=== PATIENT | female | born 1990 | race Caucasian/White ===

== ENCOUNTER 2017-02-14 09:40 | Emergency (ER) | payer OTHER ==
[2017-02-14 10:24] VITALS: BP 108/65
--- NOTE | 2017-02-14 11:06 | UC ---
Complaint Female HPI - HPI Summary HPI Summary: Pt presents with urinary symptoms of frequency, urgency and dysuria. Pt has concern for STD's and is requesting testing. Has c/o vaginal discomfort, odiferous, thick vaginal discharge. Pt recently had unprotected sex with partner. - History Of Current Complaint Chief Complaint: UCGU Stated Complaint: URINARY Time Seen by Provider: 02/14/17 10:25 Hx Obtained From: Patient Hx Last Menstrual Period: 01/20/17 ?: No Onset/Duration: Gradual Onset, Lasting Days Timing: Constant Severity Initially: Mild Severity Currently: Mild Character: Burning Aggravating Factor(s): Urination Associated Signs And Symptoms: Positive: Vaginal Discharge - yellow, odiferous - Risk Factors Ectopic Risk Factor: IUD Use Ovarian Torsion Risk Factor: Reproductive Age - Allergies/Home Medications Allergies/Adverse Reactions: Allergies Allergy/AdvReac Type Severity Reaction Status Date / Time Latex Allergy Hives Verified 02/14/17 10:19 Home Medications: Home Medications NK [No Home Medications Reported] 02/14/17 [History Confirmed 02/14/17] PMH/Surg Hx/FS Hx/Imm Hx Previously Healthy: Yes - Surgical History Surgical History: Yes Surgery Procedure, Year, and Place: tonsilletomy age 2 - Family History Known Family History: Positive: Other - positive [facility] for - Social History Alcohol Use: Occasionally Substance Use Type: None Smoking Status (MU): Light Every Day Tobacco Smoker Type: Cigarettes Amount Used/How Often: 2-3 cigarettes daily Household Exposure Type: Cigarettes - Immunization History Most Recent Influenza Vaccination: no Review of Systems Constitutional: Negative Skin: Negative Eyes: Negative ENT: Negative Respiratory: Negative Cardiovascular: Negative Gastrointestinal: Abdominal Pain - pelvic cramping Genitourinary: Dysuria, Frequency, Urgency Motor: Negative Neurovascular: Negative Musculoskeletal: Negative Neurological: Negative Psychological: Negative All Other Systems Reviewed And Are Negative: Yes Physical Exam Triage Information Reviewed: Yes Appearance: Well-Appearing Vital Signs: Initial Vital Signs Temp 98.4 F 02/14/17 10:19 Pulse 64 02/14/17 10:19 Resp 16 02/14/17 10:19 BP 108/65 02/14/17 10:19 Pulse Ox 100 02/14/17 10:19 Vital Signs Reviewed: Yes Eye Exam: Normal ENT Exam: Normal Neck exam: Normal Respiratory Exam: Normal Cardiovascular Exam: Normal Abdominal Exam: Other - thick yellow discharge in vaginal vault, cervix, pink, nonfirable, cervix visualized, did not visualize IUD strings. Abdomen Description: Positive: Other: - negative chandeliers test Musculoskeletal Exam: Normal Neurological Exam: Normal Psychological Exam: Normal Skin Exam: Normal Complaint Female Dx - Differential Dx/Diagnosis Differential Diagnosis/HQI/PQRI: Pelvic Inflammatory Disease, Sexually Transmitted Disease, Urinary Tract Infection Provider Diagnoses: Possible STD exposure. Bacterial Vaginosis Discharge - Discharge Plan Condition: Stable Disposition: HOME Patient Education Materials: Vaginitis (ED), Sexually Transmitted Diseases (ED) Referrals: [facility] [place] [facility] [Outside] Additional Instructions: Please follow up with your PCP or return to clinic as needed.
[2017-02-14] MEDS ORDERED: Azithromycin TAB* 250 MG PO ONE (11:19)
[2017-02-14] MEDS ORDERED: cefTRIAXone VIAL(*) 1,000 MG VIAL IM ONE (11:20)
[2017-02-14] MEDS ORDERED: cefTRIAXone VIAL(*) 250 MG VIAL IM ONE (11:26)
[2017-02-14] MEDS ORDERED: Lidocaine 1% MPF* 2 ML VIAL ONE (11:31)
== END 2017-02-14 12:00 | disposition home or self-care (01) ==
LOC: UCCORT 09:40
DX: N76.0 Acute vaginitis (principal); Z11.3 Encounter for screening for infections with a predominantly sexual mode of transmission; Z32.02 Encounter for pregnancy test, result negative; F17.210 Nicotine dependence, cigarettes, uncomplicated
CPT/HCPCS: 81003; 84702; 87070; 87480; 87491; 87510; 87591; 87661; 96372; 99213; A9270-GY; G0463; J0696

== ENCOUNTER 2017-10-24 14:13 | Emergency (ER) | payer OTHER ==
[2017-10-24 15:03] VITALS: BP 118/69
--- NOTE | 2017-10-24 15:25 | UC ---
Eye Complaint HPI - HPI Summary HPI Summary: bilateral eye redness and itching some purulent drainage has been worsening over the past 5 days---now also has sinus and nasal congestion - History of Current Complaint Chief Complaint: UCEye Stated Complaint: BILATERAL EYE Time Seen by Provider: 10/24/17 15:13 Hx Obtained From: Patient Hx Last Menstrual Period: 10/08/17 ?: No Onset/Duration: Gradual Onset, Lasting Days - 5, Still Present, Worse Since - today Timing: Constant Severity Initially: Mild Severity Currently: Moderate Location of Injury: Conjunctiva Aggravating Factor(s): Nothing Alleviating Factor(s): Nothing Associated Signs And Symptoms: Positive: Drainage (Purulent) - Allergies/Home Medications Allergies/Adverse Reactions: Allergies Allergy/AdvReac Type Severity Reaction Status Date / Time Latex Allergy Hives Verified 10/24/17 15:03 Home Medications: Home Medications Phendimetrazine Tartrate 105 mg PO BID 10/24/17 [History Confirmed 10/24/17] PMH/Surg Hx/FS Hx/Imm Hx Previously Healthy: Yes - Surgical History Surgical History: Yes Surgery Procedure, Year, and Place: tonsilletomy age 2 - Family History Known Family History: Positive: None, Other - positive [facility] for - Social History Occupation: Employed Full-time Lives: With Family Alcohol Use: Occasionally Substance Use Type: None Smoking Status (MU): Light Every Day Tobacco Smoker Type: Cigarettes Amount Used/How Often: 1/2 PPD daily Length of Time of Smoking/Using Tobacco: 10 YRS Have You Smoked in the Last Year: Yes Household Exposure Type: Cigarettes - Immunization History Most Recent Influenza Vaccination: no Review of Systems Constitutional: Negative Skin: Negative Eyes: Drainage, Eye Redness ENT: Negative, Nasal Discharge, Sinus Congestion Respiratory: Negative Cardiovascular: Negative Gastrointestinal: Negative Genitourinary: Negative Motor: Negative Neurovascular: Negative Musculoskeletal: Negative Neurological: Negative Psychological: Negative Is Patient Immunocompromised?: No All Other Systems Reviewed And Are Negative: Yes Physical Exam Triage Information Reviewed: Yes Appearance: Well-Appearing, No Pain Distress, Well-Nourished Vital Signs: Initial Vital Signs Temp 97.5 F 10/24/17 14:55 Pulse 82 10/24/17 14:55 Resp 18 10/24/17 14:55 BP 118/69 10/24/17 14:55 Pulse Ox 100 10/24/17 14:55 Vital Signs Reviewed: Yes Eye Exam: Other Eyes: Positive: Conjunctiva Inflamed, Discharge ENT Exam: Normal ENT: Positive: Normal ENT inspection, Hearing grossly normal, Pharynx normal, Nasal congestion, TMs normal, Uvula midline. Negative: Tonsillar swelling, Tonsillar exudate, Trismus, Muffled voice, Hoarse voice, Sinus tenderness Dental Exam: Normal Neck exam: Normal Neck: Positive: Supple, Nontender, No Lymphadenopathy Respiratory Exam: Normal Respiratory: Positive: Chest non-tender, Lungs clear, Normal breath sounds, No respiratory distress, No accessory muscle use Cardiovascular Exam: Normal Cardiovascular: Positive: RRR, No Murmur, Pulses Normal, Brisk Capillary Refill Musculoskeletal Exam: Normal Musculoskeletal: Positive: Strength Intact, ROM Intact, No Edema Neurological Exam: Normal Neurological: Positive: Alert, Muscle Tone Normal Psychological Exam: Normal Skin Exam: Normal Eye Complaint Course/Dx - Course Course Of Treatment: polytrim drops ou, sudafed, follow with optho if worsens or fails to improve, - Differential Dx/Diagnosis Provider Diagnoses: Rhinosinusitis, Conjuctivitis ou Discharge - Discharge Plan Condition: Stable Disposition: HOME Prescriptions: Polymyx/Trimethoprim OPTH* [Polytrim OPHTH*] 1 drop BOTH EYES Q4H #1 btl Patient Education Materials: Pseudoephedrine (By mouth), Rhinosinusitis (ED), Conjunctivitis (ED) Forms: *Work Release Referrals: [facility] [place] [facility] [[place]] - If Needed Ranjit Sharma MD [Medical Doctor] - 5 Days
== END 2017-10-24 15:38 | disposition home or self-care (01) ==
LOC: UCCORT 14:13
DX: H10.33 Unspecified acute conjunctivitis, bilateral (principal); R05 Cough; R09.81 Nasal congestion
CPT/HCPCS: 99212; G0463

== ENCOUNTER 2017-11-18 11:32 | Emergency (ER) | payer OTHER ==
[2017-11-18 11:52] VITALS: BP 125/70
--- NOTE | 2017-11-18 12:03 | UC ---
Eye Complaint HPI - HPI Summary HPI Summary: 27 year with eye complaint. Here 10/2017 and given antibiotic drops. Had viral illness prior to that. Went to [facility] and given additional drops and still not improved. c/o bi-lateral eye swelling, pain, redness to the conjunctiva and scelera for the past month. She has tried eye drops from our clinic, eye ointment from [facility] ED and still the eyes are not improving. She states having clear drainage from both eyes all day and "crusted over" every morning. [ End ] - History of Current Complaint Chief Complaint: UCEye Stated Complaint: BILAT EYE ISSUE Time Seen by Provider: 11/18/17 11:43 Hx Obtained From: Patient Hx Last Menstrual Period: 11/12/17 Onset/Duration: Gradual Onset Timing: Constant Severity Initially: Moderate Severity Currently: Moderate Associated Signs And Symptoms: Positive: Drainage (Clear). Negative: Photophobia, Drainage (Purulent), Vision Impairment Bilateral - Allergies/Home Medications Allergies/Adverse Reactions: Allergies Allergy/AdvReac Type Severity Reaction Status Date / Time Latex Allergy Hives Verified 11/18/17 11:52 PMH/Surg Hx/FS Hx/Imm Hx Previously Healthy: Yes - Surgical History Surgical History: Yes Surgery Procedure, Year, and Place: tonsilletomy age 2 - Family History Known Family History: Positive: None, Other - positive [facility] for - Social History Occupation: Employed Full-time Alcohol Use: Occasionally Substance Use Type: None Smoking Status (MU): Heavy Every Day Tobacco Smoker Type: Cigarettes Amount Used/How Often: 1/2 PPD daily Length of Time of Smoking/Using Tobacco: 10 YRS Have You Smoked in the Last Year: Yes Household Exposure Type: Cigarettes - Immunization History Most Recent Influenza Vaccination: no Review of Systems Eyes: Drainage, Eye Redness Is Patient Immunocompromised?: No All Other Systems Reviewed And Are Negative: Yes Physical Exam Triage Information Reviewed: Yes Appearance: Well-Appearing, No Pain Distress, Well-Nourished Vital Signs: Initial Vital Signs Temp 99.6 F 11/18/17 11:43 Pulse 77 11/18/17 11:43 Resp 14 11/18/17 11:43 BP 125/70 11/18/17 11:43 Pulse Ox 100 11/18/17 11:43 Vital Signs Reviewed: Yes Eye Exam: Normal Eyes: Positive: Conjunctiva Inflamed, Discharge - clear b/l ENT Exam: Normal Dental Exam: Normal Neck exam: Normal Neck: Positive: 1 Respiratory Exam: Normal Cardiovascular Exam: Normal Musculoskeletal Exam: Normal Neurological Exam: Normal Psychological Exam: Normal Skin Exam: Normal Eye Complaint Course/Dx - Course Course Of Treatment: no contacts used. start drops. given info and referral to optho to call and set up appt if sx not resolved. - Differential Dx/Diagnosis Differential Diagnosis/HQI/PQRI: Conjunctivitis, Uveitis Provider Diagnoses: Allergic conjunctivitis b/l Discharge - Discharge Plan Condition: Good Disposition: HOME Prescriptions: Olopatadine 0.1% OPHTH (NF) [Patanol 0.1% OPHTH (NF)] 1 drop BOTH EYES DAILY #1 btl Patient Education Materials: Conjunctivitis (ED) Referrals: Ranjit Sharma MD [Medical Doctor] - 4 Days (If needed Optho referral ) Additional Instructions: You are being diagnosed with allergic conjunctivitis and if your symptoms are not resolving in the next 2-3 days then call for optho follow up
== END 2017-11-18 12:19 | disposition home or self-care (01) ==
LOC: UCCORT 11:32
DX: H10.13 Acute atopic conjunctivitis, bilateral (principal); Z90.89 Acquired absence of other organs; Z91.040 Latex allergy status; F17.210 Nicotine dependence, cigarettes, uncomplicated
CPT/HCPCS: 99212; G0463

== ENCOUNTER 2018-02-02 14:59 | Emergency (ER) | payer OTHER ==
[2018-02-02 15:33] VITALS: BP 134/72
[2018-02-02] MEDS ORDERED: Acetaminophen TAB* 325 MG PO ONE (15:47)
--- NOTE | 2018-02-02 15:47 | UC ---
Complaint Female HPI - HPI Summary HPI Summary: Pt presents reporting 3 hours of pinching pain in left lower abdomen. Pt states has intermittently had pinching sensation and her rapid outsole stitcher thinks related to her IUD. Pt states today had severe pinching pain which is different than previous, but in same location. no vaginal bleeding, itching, or odor. No discomfort with intercourse. No nausea, vomiting. Pt has appt with rapid outsole stitcher for next Wednesday to have IUD evaluated - called today and could not be seen sooner. Pt directed to UC. No analgesia taken. No other complaints. No diarrhea. + po. No h/o ovarian cysts. Pt states took a test [employer] which was negative Pt's medications reviewed this visit - History Of Current Complaint Chief Complaint: UCAbdominalPain Stated Complaint: LFT SIDE PAIN (CERVICAL) Time Seen by Provider: 02/02/18 15:28 Hx Last Menstrual Period: 12/15/17 - has IUD Pain Intensity: 7 - Allergies/Home Medications Allergies/Adverse Reactions: Allergies Allergy/AdvReac Type Severity Reaction Status Date / Time latex Allergy Intermediate Hives Verified 02/02/18 15:34 PMH/Surg Hx/FS Hx/Imm Hx Previously Healthy: Yes - Surgical History Surgical History: Yes Surgery Procedure, Year, and Place: tonsilletomy age 2 - Family History Known Family History: Positive: None, Other - positive [facility] for - Social History Occupation: Employed Full-time Lives: With Family Alcohol Use: Occasionally Substance Use Type: None Smoking Status (MU): Heavy Every Day Tobacco Smoker Type: Cigarettes Amount Used/How Often: 1/2 PPD daily Length of Time of Smoking/Using Tobacco: 10 YRS Have You Smoked in the Last Year: Yes Household Exposure Type: Cigarettes - Immunization History Most Recent Influenza Vaccination: no Review of Systems Constitutional: Negative Gastrointestinal: Other - llq pain All Other Systems Reviewed And Are Negative: Yes Physical Exam Triage Information Reviewed: Yes Appearance: Well-Appearing, No Pain Distress, Well-Nourished Vital Signs: Initial Vital Signs Temp 99.8 F 02/02/18 15:27 Pulse 97 02/02/18 15:27 Resp 18 02/02/18 15:27 BP 134/72 02/02/18 15:27 Pulse Ox 100 02/02/18 15:27 Vital Signs Reviewed: Yes ENT: Positive: Pharynx normal, TMs normal Neck exam: Normal Neck: Positive: Supple, Nontender, No Lymphadenopathy Respiratory Exam: Normal Respiratory: Positive: Chest non-tender, Lungs clear, Normal breath sounds, No respiratory distress, No accessory muscle use Cardiovascular Exam: Normal Cardiovascular: Positive: RRR, No Murmur, Pulses Normal Abdominal Exam: Normal Abdomen Description: Positive: Nontender, No Organomegaly, Soft, Other: - + TTP left lower abdomen Bowel Sounds: Positive: Present Musculoskeletal Exam: Normal Musculoskeletal: Positive: Strength Intact Neurological Exam: Normal Neurological: Positive: Alert Psychological Exam: Normal Skin Exam: Normal Re-Evaluation - Re-Evaluation First Eval Re-Evaluation Time: 16:29 Comment: walking back from xray, pt with sudden severe pain - slowly improved. Pt with recurrence in room when I was discussing plan - recommend go to ED for evaluation of ovarian cyst / torsion. pt calling for a ride. Pt deferring pelvic at this time. spoke with KATH Levy in ED at [facility] (pt preference ) - aware of pt Complaint Female Dx - Course Course Of Treatment: d/w at length. will check urine for . pt would like xray for placement. analgesia. undecided if would like removal - pt aware if attempt removal and has bleeding or doesn't remove easy will stop procedure. Pt states understanding and agreement with plan - Differential Dx/Diagnosis Provider Diagnoses: Left pelvic pain Discharge - Sign-Out/Discharge Documenting (check all that apply): Discharge - to ED by POV - Discharge Plan Condition: Good Disposition: HOME Discharge Disposition Comment: pt going to by POV to ED at [facility] (pt preference) Referrals: No Primary Care Phys,NOPCP [Primary Care Provider] - Additional Instructions: The doctor that evaluated you recommends you go directly to the emergency department for evaluation of possible ovarian cyst and torsion Go directly to the ED - do not eat or drink anything They are expecting you - Billing Disposition and Condition Condition: GOOD Disposition: HOME
[2018-02-02] MEDS ORDERED: Acetaminophen TAB* 325 MG ONE (15:53)
--- NOTE | 2018-02-02 16:51 | RAD ---
INDICATION: Low abdominal pain in a woman with an IUD COMPARISON: None TECHNIQUE: 2 views the abdomen were obtained. FINDINGS: An intrauterine device is seen at the midline pelvis. There are no acute bony or soft tissue abnormalities. The bowel gas pattern is normal. There is a moderate amount of stool overlying the renal shadows. There are no obvious coarse calcifications overlying the expected location of the bilateral collecting systems or ureters. IMPRESSION: SLIGHTLY RIGHT OF MIDLINE INTRAUTERINE DEVICE IS NOTED IN THIS OTHERWISE NORMAL KUB.
== END 2018-02-02 16:36 | disposition home or self-care (01) ==
LOC: UCCORT 14:59
DX: R10.2 Pelvic and perineal pain (principal); Z97.5 Presence of (intrauterine) contraceptive device; F17.210 Nicotine dependence, cigarettes, uncomplicated
CPT/HCPCS: 74018; 84702; 99212; A9270-GY; G0463

== ENCOUNTER 2018-03-09 09:21 | Emergency (ER) | payer OTHER ==
[2018-03-09 10:45] VITALS: BP 120/77
--- NOTE | 2018-03-09 10:58 | UC ---
Eye Complaint HPI - HPI Summary HPI Summary: Pt c/o bilateral eye redness, yellow discharge and swelling X 1 week. Pt has been taking PO claritin and using zatidor eye drops as directed on packaging. - History of Current Complaint Chief Complaint: UCEye Stated Complaint: ALLERGY COMP Time Seen by Provider: 03/09/18 10:47 Hx Obtained From: Patient Hx Last Menstrual Period: 02/10/18 ?: No Onset/Duration: Gradual Onset, Lasting Weeks - 1, Still Present, Worse Since - osnet Timing: Constant Severity Initially: Mild Severity Currently: Mild Pain Intensity: 0 Associated Signs And Symptoms: Positive: Drainage (Purulent), Swelling - Risk Factors Penetrating Injury Risk Factor: Negative Acute Glaucoma Risk Factors: Negative Optic Artery Occlusion Risk Factors: Negative - Allergies/Home Medications Allergies/Adverse Reactions: Allergies Allergy/AdvReac Type Severity Reaction Status Date / Time latex Allergy Intermediate Hives Verified 03/09/18 10:45 Home Medications: Home Medications Ketotifen Fumarate [Zaditor] 2 drop OPHTHALMIC BID 03/09/18 [History Confirmed 03/09/18] Loratadine [Claritin 10 MG CAP] 10 mg PO DAILY 03/09/18 [History Confirmed 03/09] PMH/Surg Hx/FS Hx/Imm Hx Previously Healthy: Yes - Surgical History Surgical History: Yes Surgery Procedure, Year, and Place: tonsilletomy age 2 - Family History Known Family History: Positive: None, Other - positive [facility] for - Social History Occupation: Employed Full-time Lives: With Family Alcohol Use: Occasionally Substance Use Type: None Smoking Status (MU): Heavy Every Day Tobacco Smoker Type: Cigarettes Amount Used/How Often: 1/2 PPD daily Length of Time of Smoking/Using Tobacco: 10 YRS Have You Smoked in the Last Year: Yes Household Exposure Type: Cigarettes - Immunization History Most Recent Influenza Vaccination: no Review of Systems Constitutional: Negative Skin: Negative Eyes: Drainage, Eye Redness ENT: Negative Respiratory: Negative Cardiovascular: Negative Gastrointestinal: Negative Genitourinary: Negative Motor: Negative Neurovascular: Negative Musculoskeletal: Negative Neurological: Negative Psychological: Negative Is Patient Immunocompromised?: No All Other Systems Reviewed And Are Negative: Yes Physical Exam Triage Information Reviewed: Yes Appearance: Well-Appearing Vital Signs: Initial Vital Signs Temp 98.1 F 03/09/18 10:38 Pulse 81 03/09/18 10:38 Resp 16 03/09/18 10:38 BP 120/77 03/09/18 10:38 Pulse Ox 98 03/09/18 10:38 Vital Signs Reviewed: Yes Eyes: Positive: Conjunctiva Inflamed, Discharge ENT: Positive: Hearing grossly normal Neck exam: Normal Respiratory Exam: Normal Musculoskeletal Exam: Normal Neurological Exam: Normal Psychological Exam: Normal Skin Exam: Normal Eye Complaint Course/Dx - Differential Dx/Diagnosis Differential Diagnosis/HQI/PQRI: Conjunctivitis Provider Diagnoses: conjunctivitis bilateral Discharge - Sign-Out/Discharge Documenting (check all that apply): Discharge/Admit/Transfer - Discharge Plan Condition: Stable Disposition: HOME Prescriptions: Polymyx/Trimethoprim OPTH* [Polytrim OPHTH*] 2 drop BOTH EYES Q8H #1 btl Patient Education Materials: Conjunctivitis (ED) Forms: *Work Release Referrals: [facility] [place] [facility] [Outside] No Primary Care Phys,NOPCP [Primary Care Provider] - - Billing Disposition and Condition Condition: STABLE Disposition: HOME
== END 2018-03-09 11:05 | disposition home or self-care (01) ==
LOC: UCCORT 09:21
DX: H10.9 Unspecified conjunctivitis (principal); F17.210 Nicotine dependence, cigarettes, uncomplicated
CPT/HCPCS: 99212; G0463

== ENCOUNTER 2018-06-10 12:48 | Emergency (ER) | payer SELFPAY ==
[2018-06-10 15:02] VITALS: BP 125/83
--- NOTE | 2018-06-10 15:20 | UC ---
Skin Complaint HPI - HPI Summary HPI Summary: 27 year old female presents with onset of redness, swelling, and increased warmth to right forearm. States she believes she may have been bit by an unknown insect as it was initially very pruritic. States redness and swelling improved slightly during the day but this afternoon noticed a red streak starting to move up her arm. Denies fever, chills, or drainage. - History of Current Complaint Chief Complaint: UCSkin Time Seen by Provider: 06/10/18 15:01 Stated Complaint: RIGHT ARM SKIN COMPLAINT Hx Obtained From: Patient Hx Last Menstrual Period: 06/08/18 ?: No Onset/Duration: Sudden Onset Timing: Constant Pain Intensity: 2 Location: Other - right forearm Aggravating Factor(s): Nothing Alleviating Factor(s): Nothing Associated Signs & Symptoms: Positive: Tenderness, Red Streaks. Negative: Difficulty Breathing, Fever, Chills, Throat Tightening, Drainage Related History: Possible Reaction to: Insect - Allergy/Home Medications Allergies/Adverse Reactions: Allergies Allergy/AdvReac Type Severity Reaction Status Date / Time latex Allergy Intermediate Hives Verified 06/10/18 15:02 Review of Systems Constitutional: Negative Skin: Other - see HPI ENT: Negative Respiratory: Negative Is Patient Immunocompromised?: No All Other Systems Reviewed And Are Negative: Yes PMH/Surg Hx/FS Hx/Imm Hx - Additional Past Medical History Additional PMH: non-contributory Previously Healthy: Yes - Surgical History Surgical History: Yes Surgery Procedure, Year, and Place: tonsilletomy age 2 - Family History Known Family History: Positive: None, Other - non-contributory - Social History Occupation: Employed Full-time Lives: With Family Alcohol Use: Occasionally Substance Use Type: None Smoking Status (MU): Heavy Every Day Tobacco Smoker Type: Cigarettes Amount Used/How Often: 1/2 PPD daily Length of Time of Smoking/Using Tobacco: 10 YRS Have You Smoked in the Last Year: Yes Household Exposure Type: Cigarettes - Immunization History Most Recent Influenza Vaccination: no Physical Exam Triage Information Reviewed: Yes Appearance: Well-Appearing, No Pain Distress, Well-Nourished Vital Signs: Initial Vital Signs Temp 98.5 F 06/10/18 14:56 Pulse 73 06/10/18 14:56 Resp 16 06/10/18 14:56 BP 125/83 06/10/18 14:56 Pulse Ox 100 06/10/18 14:56 Vital Signs Reviewed: Yes ENT Exam: Other - airway intact Neck: Positive: No Lymphadenopathy Respiratory: Positive: No respiratory distress Cardiovascular Exam: Normal Skin: Positive: Other - Area of erythema, mild edema, approximately 2.5 cm in diameter with small central area of excoriation and crusting to dorsal, proximal right forearm with an area of red streaking that extends approximately 5 cm from the superior margin of redness. Course/Dx - Course Course Of Treatment: 23 year old female with mild cellulitis secondary to a suspected insect bite. Will treat with cephalexin 500 mg TID x 5 days. Wound care reviewed with patient. Verbalizes understanding and agrees with POC. - Differential Diagnoses - Skin Complaint Differential Diagnoses: Cellulitis, Local Allergic Reaction - Diagnoses Provider Diagnoses: cellulitis right forearm Discharge - Sign-Out/Discharge Documenting (check all that apply): Patient Departure - Discharge Plan Condition: Stable Disposition: HOME Prescriptions: Cephalexin CAP* [Keflex 500 CAP*] 500 mg PO TID #15 cap Patient Education Materials: Cellulitis (DC) Referrals: No Primary Care Phys,NOPCP [Primary Care Provider] - Additional Instructions: Follow up with primary care provider if no improvement in 5 days. Seek immediate medical attention if you have fever greater than 100.5 F, increased redness, swelling, pain, or any worsening of symptoms. - Billing Disposition and Condition Condition: STABLE Disposition: Home
== END 2018-06-10 15:27 | disposition home or self-care (01) ==
LOC: UCCORT 12:48
DX: L03.113 Cellulitis of right upper limb (principal); F17.210 Nicotine dependence, cigarettes, uncomplicated
CPT/HCPCS: 99212; G0463